=== PATIENT | female | born 1950 | race Caucasian/White ===

== ENCOUNTER 2023-09-27 03:38 | Emergency (ER) | payer SELFPAY ==
[2023-09-27 04:01] VITALS: BP 0/0; BMI 30.2
== END 2023-09-27 05:51 | disposition expired ==
LOC: JER 03:38
PROC: 0BH17EZ Insertion of Endotracheal Airway into Trachea, Via Natural or Artificial Opening (ICD-10-PCS; principal; 2023-09-27)
PROC: 5A1221Z Performance of Cardiac Output, Continuous (ICD-10-PCS; 2023-09-27)
DX: I46.9 Cardiac arrest, cause unspecified (principal)
CPT/HCPCS: 99283-25